=== PATIENT | male | born 1960 | race Caucasian/White ===

== ENCOUNTER 2018-09-04 08:59 | Day surgery (SDC) | payer MEDICAID, OTHER ==
[2018-09-04] MEDS ORDERED: LR 1,000 ML IV ONE (09:08)
--- NOTE | 2018-09-04 09:10 | PDHPUP ---
History & Physical Update H&P update statement: This history and physical update is based on an assessment of the patient which was completed after admission or registration (within 24 hours), but prior to the surgery/procedure. H&P update: H&P reviewed & patient examined, no change in patient's condition since H&P completed
[2018-09-04] MEDS ORDERED: MIDAZOLAM 2 MG/2 ML VIAL IVP ONE (10:06)
[2018-09-04] MEDS ORDERED: BUPIVACAINE/EPI 0.5% 30 ML SDV ONE (10:42)
[2018-09-04] MEDS ORDERED: fentaNYL 100 MCG/2 ML INJ ONE ×2 (11:10→12:05)
[2018-09-04] MEDS ORDERED: PROPOFOL 200 MG/20 ML VIAL ONE (11:10)
--- NOTE | 2018-09-04 11:11 | PDANEPAE ---
ANE Past Medical History - Cardiovascular History Hx Hypertension: Yes Hx Arrhythmias: No Hx Chest Pain: No Hx Coronary Artery / Peripheral Vascular Disease: No Hx CHF / Valvular Disease: No Hx Palpitations: No - Pulmonary History Hx COPD: No Hx Asthma/Reactive Airway Disease: No Hx Recent Upper Respiratory Infection: No Hx Oxygen in Use at Home: No Hx Sleep Apnea: No Pulmonary History Comment: Asthma - Neurologic History Hx Cerebrovascular Accident: No Hx Seizures: No Hx Dementia: No - Endocrine History Hx Diabetes: No - Renal History Hx Renal Disorders: No - Liver History Hx Hepatic Disorders: No - Neurological & Psychiatric Hx Hx Neurological and Psychiatric Disorders: No - Cancer History Hx Cancer: No - Congenital Disorder History Hx Congenital Disorders: No - GI History Hx Gastrointestinal Disorders: No - Chronic Pain History Chronic Pain: No - Surgical History Prior Surgeries: Knee arthroscopy. Colonoscopy- 1 year. wisdom teeth ANE Review of Systems Review of Systems: - Exercise capacity METS (RN): 6 METS ANE Patient History - Allergies Allergies/Adverse Reactions: No Known Allergies Allergy (Unverified 09/04/18 09:18) - Home Medications Home medications: home medication list seen and reviewed Home Medications: Lipitor 09/04/18 [Last Taken 09/04/18] Lisinopril 09/04/18 [Last Taken 09/04/18] Multivitamins W-Minerals 09/04/18 [Last Taken 09/04/18] - NPO status NPO Since - Liquids (Date): 09/03/18 NPO Since - Liquids (Time): 07:30 NPO Since - Solids (Date): 09/03/18 NPO Since - Solids (Time): 19:30 - Anes Hx Anes Hx: no prior problems - Smoking Hx Smoking Status: Former smoker - Family Anes Hx Family Hx Anesthesia Complications: None ANE Labs/Vital Signs - Vital Signs Blood Pressure: 114/87 Heart Rate: 67 Respiratory Rate: 16 O2 Sat (%): 94 Height: 172.72 cm Weight: 79.379 kg ANE Physical Exam - Airway Neck exam: FROM Mallampati Score: Class 2 Mouth exam: normal dental/mouth exam - Pulmonary Pulmonary: no respiratory distress - ASA Status ASA Status: II ANE Anesthesia Plan Anesthesia Plan: general endotracheal anesthesia
[2018-09-04] MEDS ORDERED: ROCURONIUM 50 MG/5 ML VIAL ONE (11:12)
[2018-09-04] MEDS ORDERED: KETOROLAC 30 MG/1 ML SDV ONE (11:17)
[2018-09-04] MEDS ORDERED: DEXAMETHASONE 4 MG/ML VIAL ONE (11:17)
[2018-09-04] MEDS ORDERED: ONDANSETRON 4 MG/2 ML VIAL IVP PRN (11:57)
[2018-09-04] MEDS ORDERED: ALBUTEROL 3 ML DEYVIAL IH PRN (11:57)
[2018-09-04] MEDS ORDERED: MEPERIDINE 25 MG/0.5 ML AMP IVP PRN (11:57)
[2018-09-04] MEDS ORDERED: METOCLOPRAMIDE 10 MG/2 ML VIAL IVP PRN (11:57)
[2018-09-04] MEDS ORDERED: ACETAMINOPHEN 500 MG TAB PO PRN (11:57)
[2018-09-04] MEDS ORDERED: fentaNYL 100 MCG/2 ML INJ IVP PRN (11:57)
[2018-09-04] MEDS ORDERED: DIAZEPAM 5 MG/ML 1 ML SYR IVP PRN (11:57)
[2018-09-04] MEDS ORDERED: PROMETHAZINE HCL 25 MG/ML INJ IVP PRN (11:57)
[2018-09-04] MEDS ORDERED: HYDROmorphONE/DILAUDID 2 MG/ML INJ IVP PRN (11:57)
[2018-09-04] MEDS ORDERED: NALOXONE HCL 0.4 MG/ML INJ IVP PRN (11:57)
[2018-09-04] MEDS ORDERED: oxyCODONE IR 5 MG TAB PO PRN (11:57)
[2018-09-04] MEDS ORDERED: GLYCOPYRROLATE 0.2 MG/1 ML VIAL ONE (12:02)
[2018-09-04] MEDS ORDERED: NEOSTIGMINE METHYLSULFATE 5 MG/5 ML SYR ONE (12:02)
--- NOTE | 2018-09-04 12:15 | POSTOPPROG ---
Post Op Note Date of Operation: 09/04/18 Surgeon: Dev Zapata Machine Puller: Fang Cheung PA-C Anesthesiologist: Elvira Reyes Anesthesia: GET(General Endotracheal) Pre-op Diagnosis: Right inguinal hernia Post-op Diagnosis: Right inguinal hernia Procedure: Laparoscopic bilateral inguinal herniorrhapy Findings: right direct space defect Inf/Abcess present in the surg proc area at time of surgery?: No EBL: Minimal Complications: no immediate
--- NOTE | 2018-09-04 12:41 | POSTANESTH ---
Post Anesthetic Evaluation Cardiovascular Status: Normal, Stable Respiratory Status: Normal, Stable Level of Consciousness/Mental Status: Can Participate in Eval Pain Control: Adequate, Prn Tx Ordered Nausea/Vomiting Control: Adequate, Prn Tx Ordered Complications Possibly Related to Anesthesia: None Noted
[2018-09-04 13:41] VITALS: BP 108/85
--- NOTE | 2018-09-05 06:59 | GOP ---
[f rep st] OPERATIVE REPORT DATE OF OPERATION: 09/04/2018 SURGEON: Dev Zapata MD SUPERVISOR ORDER TAKERS: Fang Cheung PA-C. ANESTHESIA: General. ANESTHESIOLOGIST: Elvira Reyes MD. PREOPERATIVE DIAGNOSIS: Right inguinal hernia. POSTOPERATIVE DIAGNOSIS: Right inguinal hernia. PROCEDURE PERFORMED: Laparoscopic right inguinal herniorrhaphy with prophylactic left inguinal hernia repair. FINDINGS: See below. INDICATIONS: 58-year-old male with a symptomatic right inguinal hernia. He is undergoing surgical repair at this time. Risks and benefits were explained including but not limited to bleeding, infection, open conversion, bladder injury as well as recurrence. All questions were answered. He desires to proceed. A surgical device sales representative is standard and necessary and customary for the safe performance of this procedure. DESCRIPTION OF PROCEDURE: After general anesthesia was induced, the abdomen was pre-injected with 0.5% Marcaine with epinephrine. A transverse infraumbilical incision was created. The left anterior rectus sheath fascia was opened. The preperitoneal space was developed with a balloon dissecting trocar until bilateral pubic arches were identified. A structured balloon was inserted followed by two 5 mm lower midline ports. Bilateral spermatic cords were circumferentially encompassed. There was a large chronic right indirect hernia sac. The sac was skeletonized off the cord structures and allowed to fall back toward the abdominal space. The direct space appeared normal. A large 3D Marlex symmetric patch was inserted and secured to Andrews's ligament and the anterior abdominal wall. The contralateral groin was dissected out. There was mild direct space laxity without discreet defect. There was no evidence of indirect sac. A large 3D patch was inserted and secured prophylactically in mirror image fashion. Complete coverage of the entire myopectineal service was obtained. Satisfactory hemostasis was assured. Trocars were removed under direct visualization. The anterior rectus sheath fascia was closed with a running Vicryl suture. The wounds were closed with Monocryl suture by Dermabond. The patient taken to recovery uneventfully. /[id number]/MODL MTDD
== END 2018-09-04 13:35 | disposition home or self-care (01) ==
LOC: FSGY 08:59
PROVIDERS: ATTEND Surgery
PROC: 0YU54JZ Supplement Right Inguinal Region with Synthetic Substitute, Percutaneous Endoscopic Approach (ICD-10-PCS; principal; 2018-09-04 10:45)
PROC: 0YQ64ZZ Repair Left Inguinal Region, Percutaneous Endoscopic Approach (ICD-10-PCS; principal; 2018-09-04 10:45)
DX: K40.90 Unilateral inguinal hernia, without obstruction or gangrene, not specified as recurrent (principal); I10 Essential (primary) hypertension; E78.5 Hyperlipidemia, unspecified; Z80.42 Family history of malignant neoplasm of prostate
CPT/HCPCS: C1727; C1781; J1100; J1885; J2250; J2704; J2710; J3010